=== PATIENT | female | born 1970 | race Caucasian/White ===

== ENCOUNTER → 2019-11-28 11:00 | Outpatient (BNVA) | payer BC, OTHER, SELFPAY | PROVIDERS: Family Provider Nurse Practitioner; PCP Nurse Practitioner; Visit Provider Obstetrics & Gynecology | DX: Z12.4 Encounter for screening for malignant neoplasm of cervix (principal); Z12.39 Encounter for other screening for malignant neoplasm of breast; Z01.419 Encounter for gynecological examination (general) (routine) without abnormal findings; Z78.9 Other specified health status | CPT/HCPCS: 80053; 80061; 83036; 85025; 88175 ==

== ENCOUNTER → 2020-08-09 16:24 | Outpatient (BNVA) | payer OTHER, SELFPAY | PROVIDERS: Family Provider Nurse Practitioner; PCP Nurse Practitioner; Visit Provider Nurse Practitioner | DX: R73.9 Hyperglycemia, unspecified (principal); F41.9 Anxiety disorder, unspecified | CPT/HCPCS: 80053; 84443 ==

== ENCOUNTER → 2020-08-13 15:41 | Outpatient (BNVA) | payer OTHER, SELFPAY | PROVIDERS: Family Provider Nurse Practitioner; PCP Nurse Practitioner; Visit Provider Obstetrics & Gynecology | DX: L65.9 Nonscarring hair loss, unspecified (principal); N91.1 Secondary amenorrhea | CPT/HCPCS: 83001 ==

== ENCOUNTER → 2021-01-22 13:30 | Outpatient (BNVA) | payer OTHER, SELFPAY | PROVIDERS: Family Provider Nurse Practitioner; PCP Nurse Practitioner; Visit Provider Obstetrics & Gynecology | DX: Z01.419 Encounter for gynecological examination (general) (routine) without abnormal findings (principal); L65.9 Nonscarring hair loss, unspecified; N91.1 Secondary amenorrhea; N95.1 Menopausal and female climacteric states; Z12.39 Encounter for other screening for malignant neoplasm of breast; Z12.11 Encounter for screening for malignant neoplasm of colon | CPT/HCPCS: 83001; 88175 ==

== ENCOUNTER → 2021-11-05 11:04 | Outpatient (BNVA) | payer OTHER, SELFPAY | PROVIDERS: Family Provider Nurse Practitioner; PCP Nurse Practitioner; Visit Provider Nurse Practitioner Family | DX: J06.9 Acute upper respiratory infection, unspecified (principal); Z20.822 Contact with and (suspected) exposure to COVID-19; R05.9 Cough, unspecified; Z13.9 Encounter for screening, unspecified; Z11.52 Encounter for screening for COVID-19; J32.0 Chronic maxillary sinusitis | CPT/HCPCS: 87635 ==

== ENCOUNTER → 2022-08-27 16:40 | Outpatient (BNVA) | payer OTHER, SELFPAY | PROVIDERS: Family Provider Nurse Practitioner; PCP Nurse Practitioner; Visit Provider Nurse Practitioner Family | DX: Z78.0 Asymptomatic menopausal state (principal); L65.9 Nonscarring hair loss, unspecified; F41.9 Anxiety disorder, unspecified; R73.9 Hyperglycemia, unspecified; E66.9 Obesity, unspecified; N95.1 Menopausal and female climacteric states | CPT/HCPCS: 80053; 80061; 82088; 82672; 83036; 84402; 84403; 84443 ==

== ENCOUNTER → 2023-05-25 11:44 | Outpatient (BNVA) | payer BC, SELFPAY | PROVIDERS: Family Provider Nurse Practitioner; PCP Nurse Practitioner; Visit Provider Nurse Practitioner Family | DX: Z78.0 Asymptomatic menopausal state (principal); N95.1 Menopausal and female climacteric states; L65.9 Nonscarring hair loss, unspecified; F41.9 Anxiety disorder, unspecified; R73.9 Hyperglycemia, unspecified; F52.0 Hypoactive sexual desire disorder; E66.3 Overweight | CPT/HCPCS: 80053; 80061; 82672; 83036; 84144; 84402; 84403; 84443 ==